=== PATIENT | female | born 1990 ===

== ENCOUNTER 2016-11-21 05:51 | Emergency (ER) | payer OTHER ==
[2016-11-21 06:10] VITALS: TEMP 98.5
--- NOTE | 2016-11-21 06:13 | C.PDOC ---
History Of Present Illness patient with headache symptoms over the last 4 months. No f/c/. Some nausea no vomiting. Woke up with headache. Took o600 mg ibuprofen, without relief. Time Seen by Provider: 11/21/16 06:13 Chief Complaint (Nursing): Headache History Per: Patient History/Exam Limitations: no limitations Onset/Duration Of Symptoms: Days (90) Current Symptoms Are (Timing): Still Present Severity: Moderate Pain Scale Rating Of: 6 Quality: Dull, Aching, Pressure Preceeding Symptoms: None Associated Symptoms: Photophobia (mild), Nausea. denies: Vomiting Recent travel outside of the [place]: No Additional History Per: Family Past Medical History Reviewed: Historical Data, Nursing Documentation, Vital Signs Vital Signs: Last Vital Signs Temp 98.5 F 11/21/16 06:05 Pulse 90 11/21/16 06:05 Resp 18 11/21/16 06:05 BP 108/70 11/21/16 06:05 Pulse Ox 98 11/21/16 06:13 Family History: States: No Known Family Hx - Social History Hx Alcohol Use: Yes Hx Substance Use: No - Immunization History Hx Tetanus Toxoid Vaccination: No Hx Influenza Vaccination: No Hx Pneumococcal Vaccination: No Review Of Systems Constitutional: Negative for: Fever, Chills Eyes: Negative for: Vision Change ENT: Negative for: Throat Pain Cardiovascular: Negative for: Chest Pain Respiratory: Negative for: Shortness of Breath Gastrointestinal: Positive for: Nausea. Negative for: Vomiting Genitourinary: Negative for: Dysuria Musculoskeletal: Negative for: Back Pain Skin: Negative for: Rash Neurological: Positive for: Headache. Negative for: Weakness Psych: Negative for: Anxiety Physical Exam - Physical Exam Appears: Non-toxic Skin: Warm, Dry Head: Normacephalic Eye(s): bilateral: Normal Inspection, PERRL, EOMI Oral Mucosa: Moist Neck: Trachea Midline, Supple Chest: Symmetrical Cardiovascular: Rhythm Regular Respiratory: No Rales, No Rhonchi, No Wheezing Gastrointestinal/Abdominal: Soft, No Tenderness Back: Normal Inspection Extremity: Normal ROM Extremity: Bilateral: Atraumatic Pulses: Left Dorsalis Pedis: Normal, Right Dorsalis Pedis: Normal Neurological/Psych: Oriented x3, Normal Speech, Normal Cognition Gait: Steady ED Course And Treatment O2 Sat by Pulse Oximetry: 98 Pulse Ox Interpretation: Normal Disposition Counseled Patient/Family Regarding: Studies Performed, Diagnosis - Disposition Disposition Time: 06:13 Condition: UNKNOWN Forms: eCollect (Latvian) - Clinical Impression Clinical Impression: Migraine Physician Patient Turnover Patient Signed Over To: Zarina Azevedo Handoff Comments: pending labs, ct , reeval and dispostion
[2016-11-21 06:43] LABS: BASO % 0.2 % (0.0-2.0); EOS % 0.1 % (0.0-4.0); HEMATOCRIT 39.6 % (34.0-47.0); LYMPH % 10.7 % (20.0-40.0); MEAN CELL VOLUME 91.8 fL (81.0-99.0); MEAN CORPUSCULAR HGB CONC 33.8 g/dL (33.0-37.0); MEAN PLATELET VOLUME 9.5 fL (7.2-11.7); MONO # 0.5 K/uL (0.0-0.8); MONO % 5.1 % (0.0-10.0); RED CELL DISTRIBUTION WIDTH 11.8 % (11.5-14.5); WHITE BLOOD COUNT 9.3 K/uL (4.8-10.8)
[2016-11-21 06:52] LABS: CHLORIDE 101 mmol/L (98-107); SODIUM 135 mmol/L (132-148)
[2016-11-21 06:53] LABS: POTASSIUM 3.7 mmol/L (3.6-5.2); RBC URINE 3 /hpf (0-3); URINE BILIRUBIN NEGATIVE (NEGATIVE); URINE BLOOD NEGATIVE (NEGATIVE); URINE COLOR Yellow (YELLOW); URINE GLUCOSE (UA) NORMAL (Normal); URINE KETONE NEGATIVE (NEGATIVE); URINE LEUKOCYTE ESTERASE NEG Leu/uL (Negative); URINE PROTEIN NEGATIVE (NEGATIVE); URINE UROBILINOGEN NORMAL mg/dL (0.2-1.0); WBC URINE 2 /hpf (0-5)
[2016-11-21 06:55] LABS: CARBON DIOXIDE 24 mmol/L (22-30); GFR AFRICAN-AMERICAN > 60
[2016-11-21 06:56] LABS: BLOOD UREA NITROGEN 15 mg/dL (7-17); CALCIUM 9.2 mg/dl (8.6-10.4); GLUCOSE,RANDOM 73 mg/dL (65-105)
[2016-11-21 07:33] VITALS: BP 100/69; PULSE 77; RESP 16; O2SAT 99
--- NOTE | 2016-11-21 08:51 | CT ---
PROCEDURE: CT HEAD WITHOUT CONTRAST. HISTORY: Headache COMPARISON: None available. TECHNIQUE: Axial computed tomography images were obtained through the head/brain without intravenous contrast. Radiation dose: Total exam DLP = 727.98 mGy-cm. This CT exam was performed using one or more of the following dose reduction techniques: Automated exposure control, adjustment of the mA and/or kV according to patient size, and/or use of iterative reconstruction technique. FINDINGS: HEMORRHAGE: No intracranial hemorrhage. BRAIN: No mass effect or edema. No atrophy or chronic microvascular ischemic changes. VENTRICLES: Unremarkable. No hydrocephalus. CALVARIUM: Unremarkable. PARANASAL SINUSES: Unremarkable as visualized. No significant inflammatory changes. MASTOID AIR CELLS: Unremarkable as visualized. No inflammatory changes. OTHER FINDINGS: None. IMPRESSION: No evidence of acute intracranial hemorrhage mass lesion mass effect or midline shift. Preliminary report was submitted by virtual Radiology.
== END 2016-11-21 08:22 | disposition home or self-care (01) ==
LOC: C.ER 05:51 → SUPCPDRO 05:51 → C.ER 08:22
DX: G43.909 Migraine, unspecified, not intractable, without status migrainosus (principal)
CPT/HCPCS: 70450; 80048; 81001; 84703; 85025; 96372; 96374; 96375; 99285; J1885; J2405; J2930; J3030

== ENCOUNTER 2017-04-16 20:48 | Emergency (ER) | payer SELFPAY ==
[2017-04-16 21:06] VITALS: RESP 20
[2017-04-16 21:27] LABS: SQUAMOUS EPITHIAL 2 /hpf (0-5); URINE BILIRUBIN NEGATIVE (NEGATIVE); URINE BLOOD 3+ (NEGATIVE); URINE CLARITY Clear (Clear); URINE COLOR Yellow (YELLOW); URINE GLUCOSE (UA) NORMAL (Normal); URINE LEUKOCYTE ESTERASE 1+ Leu/uL (Negative); URINE PROTEIN NEGATIVE (NEGATIVE); URINE UROBILINOGEN NORMAL mg/dL (0.2-1.0)
[2017-04-16 21:28] LABS: HCG,QUALITATIVE URINE POSITIVE (NEGATIVE)
[2017-04-16 21:46] LABS: BASO % 0.4 % (0.0-2.0); EOS # 0.1 K/uL (0.0-0.7); EOS % 0.7 % (0.0-4.0); HEMOGLOBIN 13.4 g/dL (11.0-16.0); LYMPH % 38.8 % (20.0-40.0); MEAN CELL VOLUME 91.5 fL (81.0-99.0); MEAN CORPUSCULAR HGB CONC 33.8 g/dL (33.0-37.0); MEAN PLATELET VOLUME 9.3 fL (7.2-11.7); MONO # 0.6 K/uL (0.0-0.8); MONO % 5.5 % (0.0-10.0); NEUT # 5.6 K/uL (1.8-7.0); NEUT % 54.6 % (50.0-75.0); RBC 4.34 Mil/uL (3.80-5.20); RED CELL DISTRIBUTION WIDTH 11.9 % (11.5-14.5); WHITE BLOOD COUNT 10.3 K/uL (4.8-10.8)
[2017-04-16 21:58] LABS: ALB/GLOB RATIO 1.1 (1.0-2.1); ALBUMIN 3.9 g/dL (3.5-5.0); ALT/SGPT 23 U/L (9-52); AST/SGOT 15 U/L (14-36); BLOOD UREA NITROGEN 10 mg/dL (7-17); CALCIUM 8.8 mg/dl (8.6-10.4); GFR AFRICAN-AMERICAN > 60; GFR NON-AFRICAN AMERICAN > 60
[2017-04-16 22:04] LABS: PROTHROMBIN TIME 11.7 SECONDS (9.7-12.2)
--- NOTE | 2017-04-16 22:10 | C.PDOC ---
History Of Present Illness 27 y/o female is 9 weeks , and she presents to ED with complaints of abdominal pain associated with vaginal bleeding that began 3 days ago. Patient states she passed a clot. Denies fever or any other physical complaints. Patient states that pain is currently minimal. She also states that she did not take any pain medication and has not seen her [employer] SYSTEMS ADMINISTRATOR at this time. Time Seen by Provider: 04/16/17 21:30 Chief Complaint (Nursing): Female Genitourinary History Per: Patient History/Exam Limitations: no limitations Onset/Duration Of Symptoms: Days (3) Current Symptoms Are (Timing): Still Present Recent travel outside of the [place]: No Past Medical History Reviewed: Historical Data, Nursing Documentation, Vital Signs Vital Signs: Last Vital Signs Temp 98.4 F 04/16/17 21:00 Pulse 75 04/16/17 21:00 Resp 20 04/16/17 21:00 BP 119/77 04/16/17 21:00 Pulse Ox 99 04/16/17 22:18 - Medical History PMH: No Chronic Diseases Family History: States: No Known Family Hx - Social History Hx Alcohol Use: No Hx Substance Use: No - Immunization History Hx Tetanus Toxoid Vaccination: No Hx Influenza Vaccination: No Hx Pneumococcal Vaccination: No Review Of Systems Constitutional: Negative for: Fever, Chills Cardiovascular: Negative for: Chest Pain Respiratory: Negative for: Shortness of Breath Gastrointestinal: Positive for: Abdominal Pain. Negative for: Nausea, Vomiting , Diarrhea Genitourinary: Positive for: Vaginal Bleeding, Other (passed a clot) Neurological: Negative for: Weakness, Numbness Physical Exam - Physical Exam Appears: Well, Non-toxic, No Acute Distress Skin: Normal Color, Warm, Dry Head: Atraumatic, Normacephalic Eye(s): bilateral: Normal Inspection Oral Mucosa: Moist Neck: Supple Chest: Symmetrical, No Tenderness Cardiovascular: Rhythm Regular Respiratory: No Decreased Breath Sounds, No Rales, No Rhonchi, No Wheezing Gastrointestinal/Abdominal: Soft, Tenderness (mild suprapubic) Neurological/Psych: Oriented x3, Normal Speech, Normal Cognition ED Course And Treatment - Laboratory Results Result Diagrams: 04/16/17 21:41 04/16/17 21:41 O2 Sat by Pulse Oximetry: 99 (RA) Pulse Ox Interpretation: Normal Medical Decision Making Medical Decision Making: ro ectopic miscariage theatened ab - labs imaging pending Ordered BBK, blood work, urinalysis and Transvaginal US. 1120: pt reassesed pain resolved. abd sfot no ttp. refuses pelvic exam. discussed with dr humphrey suspect miscarriage, less likely early preg. advise outpt f/u no intercourse return precautions advised. Disposition - Disposition [facility] [Outside] Disposition: HOME/ ROUTINE Disposition Time: 23:18 Condition: STABLE Additional Instructions: please follow up with your doctor. return to er with worsening symptoms or concerns. Prescriptions: Cefpodoxime [Vantin] 100 mg PO BID #14 tab Instructions: Threatened Miscarriage (DC) Forms: [employer] (Romanian) Print Language: UKRAINIAN - Clinical Impression Clinical Impression: Threatened miscarriage - Scribe Statement The provider has reviewed the documentation as recorded by the Scribe Mychal Prieto All medical record entries made by the Scribe were at my direction and personally dictated by me. I have reviewed the chart and agree that the record accurately reflects my personal performance of the history, physical exam, medical decision making, and the department course for this patient. I have also personally directed, reviewed, and agree with the discharge instructions and disposition.
--- NOTE | 2017-04-16 23:11 | US ---
EXAM: US First Trimester, Transabdominal US , Transvaginal EXAM DATE/TIME: 04/16/2017 9:33 PM CLINICAL HISTORY: 27 years old, female; Signs and symptoms; Other: Vsg bleed / pain; Additional info: Abd pain , beta hCG 116.62; LMP 02/12/17 TECHNIQUE: Real-time transabdominal and transvaginal obstetrical ultrasound of the maternal pelvis and a first trimester with image documentation. Transvaginal imaging was used for better evaluation of the fetus and adnexa. COMPARISON: There are no prior studies for comparison. FINDINGS: Uterus: Uterus measures approximately 13.4 x 5.5 x 5.3 cm. Endometrium measures approximately 10.5 mm in width. There is thickening of the endometrium in the cervix. Endometrium in the cervical canal measures approximately 8 mm. There is no recognizable intrauterine gestation. Right ovary:: Right ovary measures approximately 3 x 2.6 x 2.8 cm. There are multiple small follicles.There is expected blood flow on Doppler imaging. There may be a corpus luteum in the right ovary. Left ovary: Left ovary measures approximately 2.9 x 1.6 x 2.5 cm. There are multiple small follicles. There is intraovarian blood flow. Free fluid: There is trace free fluid. Bladder: Bladder is almost completely empty. IMPRESSION: No intrauterine or ectopic gestation identified; thickened endometrium in the fundus and cervix suggest possibility of in progress Correlation with serial beta-hCG levels
[2017-04-16 23:31] VITALS: BP 115/75; PULSE 94; TEMP 98.2; O2SAT 100
== END 2017-04-16 23:35 | disposition home or self-care (01) ==
LOC: C.ER 20:48
DX: O20.0 Threatened abortion (principal); Z3A.09 9 weeks gestation of pregnancy

== ENCOUNTER 2017-04-18 16:37 | Emergency (ER) | payer SELFPAY ==
[2017-04-18 16:46] VITALS: BMI 23.1
--- NOTE | 2017-04-18 17:43 | C.PDOC ---
History Of Present Illness Patient is a 27 year old female, , 9 weeks , presents to ED for evaluation of vaginal bleeding associated with pelvic cramping for the last 5 days. Pt was seen at [facility] on 04/16/17 for similar symptoms. Denies n/v/d, urinary symptoms, vaginal discharge, fever, chills, or back pain. Time Seen by Provider: 04/18/17 17:28 Chief Complaint (Nursing): Abdominal Pain History Per: Patient History/Exam Limitations: no limitations Onset/Duration Of Symptoms: Days Current Symptoms Are (Timing): Still Present Location Of Pain/Discomfort: Suprapubic Radiation Of Pain To:: None Quality Of Discomfort: "Pain" Associated Symptoms: denies: Loss Of Appetite, Back Pain, Chest Pain, Constipation, Urinary Symptoms Exacerbating Factors: None Alleviating Factors: None Recent travel outside of the [place]: No Additional History Per: Patient Abnormal Vaginal Bleeding: Yes : 4 Para: 2 Past Medical History Reviewed: Historical Data, Nursing Documentation, Vital Signs Vital Signs: Last Vital Signs Temp 98.5 F 04/18/17 18:46 Pulse 79 04/18/17 18:46 Resp 14 04/18/17 18:46 BP 102/71 04/18/17 18:46 Pulse Ox 99 04/20/17 12:10 Family History: States: Unknown Family Hx - Social History Hx Alcohol Use: No Hx Substance Use: No - Immunization History Hx Tetanus Toxoid Vaccination: No Hx Influenza Vaccination: No Hx Pneumococcal Vaccination: No Review Of Systems Except As Marked, All Systems Reviewed And Found Negative. Constitutional: Negative for: Fever, Chills Gastrointestinal: Positive for: Abdominal Pain. Negative for: Nausea, Vomiting , Diarrhea, Constipation Genitourinary: Positive for: Vaginal Bleeding. Negative for: Dysuria, Frequency , Hematuria, Vaginal Discharge Musculoskeletal: Negative for: Back Pain Physical Exam - Physical Exam Appears: Non-toxic, No Acute Distress Skin: Normal Color, Warm, Dry Head: Atraumatic, Normacephalic Eye(s): bilateral: Normal Inspection, EOMI Nose: Normal Oral Mucosa: Moist Neck: Normal ROM, Supple Chest: Symmetrical Cardiovascular: Rhythm Regular Respiratory: Normal Breath Sounds, No Rales, No Rhonchi, No Wheezing Gastrointestinal/Abdominal: Soft, Tenderness (mild suprapubic), No Guarding, No Rebound Back: No CVA Tenderness Extremity: Normal ROM Neurological/Psych: Oriented x3, Normal Speech ED Course And Treatment - Laboratory Results Result Diagrams: 04/18/17 18:03 04/18/17 18:03 O2 Sat by Pulse Oximetry: 99 (RA) Pulse Ox Interpretation: Normal Progress Note: Blood work, UA ordered and reviewed. Tylenol ordered. On re-eval , pt is resting comfortably, no acute distress. Discussed with pt Beta HCG went from 116 to 41. Her US was constistent with miscarraige from previous visit. Discussed with pt symtpomatic treatment and instructed to follow up with OBGYN in 2 days for re-evalaution. case discussed with Dr Jose, agreed upon plan and treatment. Disposition - Disposition Disposition: HOME/ ROUTINE Disposition Time: 19:04 Condition: STABLE Additional Instructions: Vaya a vanessa mdico o la clnica en 2-3 seaman sin falta, para mas evaluacin. [place] los medicamentos philip indicado. Volver a la kimberlny de emergencia en cualquier momento si los sntomas persisten o empeoran. 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 - Scribe Statement The provider has reviewed the documentation as recorded by the Scribe Winnie Moser All medical record entries made by the Scribe were at my direction and personally dictated by me. I have reviewed the chart and agree that the record accurately reflects my personal performance of the history, physical exam, medical decision making, and the department course for this patient. I have also personally directed, reviewed, and agree with the discharge instructions and disposition.
[2017-04-18 18:06] LABS: BASO % 0.3 % (0.0-2.0); EOS % 0.3 % (0.0-4.0); HEMOGLOBIN 13.2 g/dL (11.0-16.0); LYMPH % 22.9 % (20.0-40.0); MEAN CELL VOLUME 91.3 fL (81.0-99.0); MEAN CORPUSCULAR HEMOGLOBIN 30.7 pg (27.0-31.0); MEAN CORPUSCULAR HGB CONC 33.7 g/dL (33.0-37.0); MEAN PLATELET VOLUME 9.4 fL (7.2-11.7); MONO # 0.4 K/uL (0.0-0.8); MONO % 4.8 % (0.0-10.0); NEUT # 6.3 K/uL (1.8-7.0); NEUT % 71.7 % (50.0-75.0); NRBC % 0.1 % (0.0-2.0); RBC 4.3 Mil/uL (3.80-5.20); RED CELL DISTRIBUTION WIDTH 11.7 % (11.5-14.5); WHITE BLOOD COUNT 8.8 K/uL (4.8-10.8)
[2017-04-18 18:11] LABS: HCG,QUALITATIVE URINE NEGATIVE (NEGATIVE)
[2017-04-18 18:13] LABS: SQUAMOUS EPITHIAL 3 /hpf (0-5); URINE BACTERIA FEW (<OCC); URINE BILIRUBIN NEGATIVE (NEGATIVE); URINE BLOOD 3+ (NEGATIVE); URINE CLARITY Hazy (Clear); URINE COLOR Yellow (YELLOW); URINE GLUCOSE (UA) NORMAL (Normal); URINE LEUKOCYTE ESTERASE NEG Leu/uL (Negative); URINE PROTEIN NEGATIVE (NEGATIVE); URINE UROBILINOGEN NORMAL mg/dL (0.2-1.0)
[2017-04-18 18:19] LABS: ALB/GLOB RATIO 1.1 (1.0-2.1); ALT/SGPT 23 U/L (9-52); AST/SGOT 16 U/L (14-36); BLOOD UREA NITROGEN 9 mg/dL (7-17); CALCIUM 8.9 mg/dl (8.6-10.4); GFR AFRICAN-AMERICAN > 60; GFR NON-AFRICAN AMERICAN > 60
[2017-04-18 18:48] VITALS: BP 102/71; PULSE 79; RESP 14; TEMP 98.5
[2017-04-18 19:05] VITALS: O2SAT 99
== END 2017-04-18 19:38 | disposition home or self-care (01) ==
LOC: C.ER 16:37
DX: O03.9 Complete or unspecified spontaneous abortion without complication (principal); Z3A.09 9 weeks gestation of pregnancy

== ENCOUNTER 2018-04-30 03:09 | Emergency (ER) | payer SELFPAY ==
[2018-04-30 03:10] VITALS: BMI 23.1
[2018-04-30 03:22] VITALS: RESP 16
[2018-04-30 04:06] LABS: BASO % 0.3 % (0.0-2.0); EOS # 0.1 K/uL (0.0-0.7); EOS % 0.5 % (0.0-4.0); HEMOGLOBIN 12.6 g/dL (11.0-16.0); LYMPH # 3.6 K/uL (1.0-4.3); LYMPH % 31.6 % (20.0-40.0); MEAN CELL VOLUME 93.3 fL (81.0-99.0); MEAN CORPUSCULAR HEMOGLOBIN 31.1 pg (27.0-31.0); MEAN CORPUSCULAR HGB CONC 33.3 g/dL (33.0-37.0); MEAN PLATELET VOLUME 9.7 fL (7.2-11.7); MONO # 0.5 K/uL (0.0-0.8); MONO % 4.8 % (0.0-10.0); NEUT # 7.2 K/uL (1.8-7.0); NEUT % 62.8 % (50.0-75.0); RBC 4.04 Mil/uL (3.80-5.20); RED CELL DISTRIBUTION WIDTH 12.7 % (11.5-14.5); WHITE BLOOD COUNT 11.5 K/uL (4.8-10.8)
[2018-04-30 04:24] LABS: ALB/GLOB RATIO 1.2 (1.0-2.1); ALBUMIN 3.8 g/dL (3.5-5.0); ALT/SGPT 10 U/L (9-52); AST/SGOT 23 U/L (14-36); BLOOD UREA NITROGEN 4 mg/dL (7-17); CALCIUM 9.3 mg/dl (8.6-10.4); GFR NON-AFRICAN AMERICAN > 60
[2018-04-30 04:27] LABS: SQUAMOUS EPITHIAL 3 /hpf (0-5); URINE AMORPHOUS SEDIMENT OCC /ul (<OCC); URINE BACTERIA RARE (<OCC); URINE BILIRUBIN NEGATIVE (NEGATIVE); URINE BLOOD NEGATIVE (NEGATIVE); URINE CLARITY Hazy (Clear); URINE COLOR Yellow (YELLOW); URINE GLUCOSE (UA) NORMAL (Normal); URINE LEUKOCYTE ESTERASE 1+ Leu/uL (Negative); URINE PROTEIN NEGATIVE (NEGATIVE); URINE UROBILINOGEN NORMAL mg/dL (0.2-1.0)
--- NOTE | 2018-04-30 06:13 | C.PDOC ---
History Of Present Illness 28 year old female, 18 weeks , presents to the emergency department with complaints of left-lower abdominal pain and vaginal bleeding. Patient denies clots, fever, chills, nausea, dizziness, urinary symptoms, trauma and vomiting. Patient states that she has care. . Time Seen by Provider: 04/30/18 03:36 Chief Complaint (Nursing): Female Genitourinary History Per: Patient History/Exam Limitations: no limitations Onset/Duration Of Symptoms: Hrs Current Symptoms Are (Timing): Still Present Location Of Pain/Discomfort: LLQ Quality Of Discomfort: "Pain" Associated Symptoms: Urinary Symptoms (some burning upon urination). denies: Fever, Chills, Nausea, Vomiting, Diarrhea Past Medical History Reviewed: Historical Data, Nursing Documentation, Vital Signs Vital Signs: Last Vital Signs Temp 98.7 F 04/30/18 03:17 Pulse 98 H 04/30/18 03:17 Resp 16 04/30/18 03:17 BP 114/67 04/30/18 03:17 Pulse Ox 98 04/30/18 03:17 - Medical History PMH: No Chronic Diseases Surgical History: No Surg Hx Family History: States: No Known Family Hx - Social History Hx Alcohol Use: No Hx Substance Use: No - Immunization History Hx Tetanus Toxoid Vaccination: No Hx Influenza Vaccination: No Hx Pneumococcal Vaccination: No Review Of Systems Except As Marked, All Systems Reviewed And Found Negative. Constitutional: Negative for: Fever, Chills Cardiovascular: Negative for: Chest Pain Respiratory: Negative for: Cough, Shortness of Breath Gastrointestinal: Positive for: Abdominal Pain. Negative for: Nausea, Vomiting, Diarrhea Genitourinary: Positive for: Dysuria, Vaginal Bleeding Musculoskeletal: Negative for: Back Pain Physical Exam - Physical Exam Appears: Non-toxic, No Acute Distress Skin: Normal Color, Warm, Dry Head: Atraumatic, Normacephalic Eye(s): bilateral: Normal Inspection, PERRL, EOMI Nose: Normal Oral Mucosa: Moist Neck: Normal, Supple Chest: Symmetrical, No Tenderness Cardiovascular: Rhythm Regular, No Murmur Respiratory: Normal Breath Sounds, No Rales, No Rhonchi, No Wheezing Gastrointestinal/Abdominal: Soft, No Tenderness, No Guarding, No Rebound Extremity: Normal ROM Neurological/Psych: Oriented x3, Normal Speech, Normal Cognition ED Course And Treatment - Laboratory Results Result Diagrams: 04/30/18 04:02 04/30/18 04:02 Lab Results: Total Bilirubin 0.3 mg/dL (0.2-1.3) 04/30/18 04:02 AST 23 U/L (14-36) 04/30/18 04:02 ALT 10 U/L (9-52) 04/30/18 04:02 Alkaline Phosphatase 42 U/L (38-126) 04/30/18 04:02 Total Protein 6.9 g/dL (6.3-8.3) 04/30/18 04:02 Albumin 3.8 g/dL (3.5-5.0) 04/30/18 04:02 Globulin 3.1 gm/dL (2.2-3.9) 04/30/18 04:02 Albumin/Globulin Ratio 1.2 (1.0-2.1) 04/30/18 04:02 Urine Color Yellow (YELLOW) 04/30/18 04:21 Urine Clarity Hazy (Clear) 04/30/18 04:21 Urine pH 7.0 (5.0-8.0) 04/30/18 04:21 Ur Specific [place] 1.013 (1.003-1.030) 04/30/18 04:21 Urine Protein Negative mg/dL (NEGATIVE) 04/30/18 04:21 Urine Glucose (UA) Normal mg/dL (Normal) 04/30/18 04:21 Urine Ketones 1+ mg/dL (NEGATIVE) H 04/30/18 04:21 Urine Blood Negative (NEGATIVE) 04/30/18 04:21 Urine Nitrate Negative (NEGATIVE) 04/30/18 04:21 Urine Bilirubin Negative (NEGATIVE) 04/30/18 04:21 Urine Urobilinogen Normal mg/dL (0.2-1.0) 04/30/18 04:21 Ur Leukocyte Esterase 1+ Jean/uL (Negative) H 04/30/18 04:21 Urine WBC (Auto) 1 /hpf (0-5) 04/30/18 04:21 Urine RBC (Auto) 1 /hpf (0-3) 04/30/18 04:21 Ur Squamous Epith Cells 3 /hpf (0-5) 04/30/18 04:21 Amorphous Sediment Occ /ul (<OCC) H 04/30/18 04:21 Urine Bacteria Rare (<OCC) 04/30/18 04:21 Beta HCG, Quant 04425.00 mIU/ML 04/30/18 04:02 O2 Sat by Pulse Oximetry: 98 (RA) Pulse Ox Interpretation: Normal - CT Scan/US US OB Other Rad Studies (CT/US): Read By Radiologist, Radiology Report Reviewed CT/US Interpretation: Impression: Single, live intrauterine gestation without abnormality. Medical Decision Making Medical Decision Making: Plan: Blood Bank and Type and Screen Chemistry CBC Urinalysis OB US US Transvag Disposition Counseled Patient/Family Regarding: Studies Performed, Diagnosis, Need For Followup - Disposition Disposition: HOME/ ROUTINE Disposition Time: 06:34 Condition: STABLE Additional Instructions: RITA RIVERA, thank you for letting us take care of you today. Your provider was aKrina Redman MD and you were treated for FEMALE GENITOURINARY. The emergency medical care you received today was directed at your acute symptoms. If you were prescribed any medication, please fill it and take as directed. It may take several days for your symptoms to resolve. Return to the Emergency Department if your symptoms worsen, do not improve, or if you have any other problems. Please go your appointment with your order packer or packager on Wednesday, May 02 as previously scheduled. Bring any paperwork you were given at discharge with you along with any medications you are taking to your follow up visit. Our treatment cannot replace ongoing medical care by a primary care provider outside of the emergency department. Thank you for allowing the [facility] team to be part of your care today. If you had an X-Ray or CT scan: A Radiologist will review the ED reading if any change in treatment is needed we will contact you. If you had a blood, urine, or wound culture: It will take several days for the results, if any change in treatment is needed we will contact you. If you had an STI test: It will take 48 hours for the results. Please call after 1 week if you have not heard back. Instructions: Bleeding With (DC) Forms: Gen Discharge Inst Citizen Of [place], [employer] (Citizen [place]) Print Language: KOREAN - POA Present On Arrival: None - Clinical Impression Clinical Impression: Threatened miscarriage - Scribe Statement The provider has reviewed the documentation as recorded by the Scribe (Stephen Lata) Provider Attestation: All medical record entries made by the Scribe were at my direction and personally dictated by me. I have reviewed the chart and agree that the record accurately reflects my personal performance of the history, physical exam, medical decision making, and the department course for this patient. I have also personally directed, reviewed, and agree with the discharge instructions and disposition.
[2018-04-30 06:22] VITALS: BP 95/59; PULSE 82; TEMP 98.5
[2018-04-30 06:36] VITALS: O2SAT 98
--- NOTE | 2018-04-30 10:54 | US ---
Date of service: 04/30/2018 PROCEDURE: Obstetrical ultrasound examination HISTORY: preg/bleeding COMPARISON: Not available TECHNIQUE: Transvaginal and transabdominal FINDINGS: There is a single live intrauterine gestation in breech presentation. The heart rate is 158 beats per minute. A normal quantity of amniotic fluid is visualized. There is a normal posterior placenta. There is no evidence of placenta previa. The cervix measures 3.9 cm in length and is closed. biometry yields a gestational age of 19 weeks 4 days. The JASON by ultrasound is 09/20/2018. Limited review of anatomy demonstrates no abnormality of the spine. A 4 chamber heart is demonstrated. There is fluid distending the stomach and urinary bladder. There is no evidence of hydronephrosis. A three-vessel umbilical cord is identified. The anterior abdominal wall is intact. Umbilical arterial duplex Doppler yields an S/D ratio of 3.1, within normal limits. IMPRESSION: Single live intrauterine gestation in breech presentation, of approximately 19 weeks 4 days. No gross anatomic abnormality. No evidence of placenta previa. Cervix long and closed. 5:45 a.m. on 04/30/2018
== END 2018-04-30 06:41 | disposition home or self-care (01) ==
LOC: C.ER 03:09
DX: O20.0 Threatened abortion (principal); Z3A.19 19 weeks gestation of pregnancy